=== PATIENT | female | born 1980 | race Caucasian/White ===

== ENCOUNTER → 2017-02-24 | Outpatient (CLI) | payer BC | LOC: FIMAGING 10:31 | PROVIDERS: ATTEND Advanced Practice Midwife | DX: O09.522 Supervision of elderly multigravida, second trimester (principal); Z3A.18 18 weeks gestation of pregnancy ==

== ENCOUNTER 2017-06-14 22:22 | Inpatient (IN) | payer BC ==
[2017-06-14] MEDS ORDERED: EPSOM SALT 454 GM TP PRN (22:52)
[2017-06-14] MEDS ORDERED: LR 1,000 ML IV PRN (22:52)
[2017-06-14] MEDS ORDERED: OLIVE OIL 118 ML BTL MISC PRN (22:52)
[2017-06-14] MEDS ORDERED: TERBUTALINE SULFATE 1 MG/ML VIAL IV PRN (22:52)
[2017-06-14] MEDS ORDERED: OXYTOCIN 20 UNIT in LR 1,000 ML IV PRN (22:52)
[2017-06-14 23:07] LABS: PLATELET COUNT 253 10^3/uL (150-400)
[2017-06-14] MEDS: AMPICILLIN SODIUM 1 GM in NS 50 ML IV SCH ×2 (23:17→23:30)
[2017-06-14] MEDS ORDERED: BUPIVACAINE 0.25% 30 ML SDV ONE (23:33)
[2017-06-14] MEDS ORDERED: fentaNYL 2MCG/ML/BUP 0.1% RTU 100 ML BAG EP ONE (23:34)
[2017-06-14] MEDS ORDERED: AMPICILLIN SODIUM 1 GM in NS 50 ML IV SCH (23:55)
[2017-06-14] MEDS ORDERED: MISOPROSTOL 200 MCG TAB ONE (23:56)
[2017-06-14] MEDS ORDERED: LIDOCAINE 1% 300 MG/30 ML SDV ONE (23:56)
[2017-06-14] MEDS ORDERED: OXYTOCIN 10 UNIT/ML VIAL ONE (23:56)
[2017-06-14] MEDS ORDERED: OLIVE OIL 118 ML BTL ONE (23:56)
[2017-06-14] MEDS ORDERED: AMMONIA AROMATIC 1 EACH AMP IH ONE (23:56)
--- NOTE | 2017-06-14 23:57 | PREANESOB ---
Obstetric Pre-Anesthesia Info - General Info Proposed Procedure: labor epidural - Info Status: Premature (34 wks) - Labor Status Cervical Dilation per last OB SVE: 6 Labor Epidural: Yes Anesthesia Allergies/Adverse Reactions: Allergy/AdvReac Type Severity Reaction Status Date / Time Sulfa (Sulfonamide Allergy Verified 06/14/17 23:06 Antibiotics) [Sulfa(Sulfonamide Antibiotics)] Home Medications: Medication Instructions Recorded Ondansetron Odt [Zofran Odt] 4 - 8 mg PO Q6 PRN #6 tab 01/15/12 oxyCODONE/APAP 5/325 [Percocet 1 - 2 tab PO Q4-6PRN PRN #20 tab 01/15/12 5/325 (*)] Cimetidine [Acid Management Sme] 02/17/12 Ondansetron Odt [Zofran Odt] 4 - 8 mg PO Q4PRN PRN #4 tab 02/18/12 Pantoprazole Sodium [Protonix 40mg 40 mg PO DAILY #30 tab 02/18/12 (RX)] Visit Medications: Generic Name Dose Route Start Last Admin Trade Name Freq PRN Reason Stop Dose Admin Ampicillin Sodium 1 gm/ Sodium 50 mls @ 100 mls/hr 06/14/17 23:00 06/14/17 23 :17 Chloride IV 06/14/17 23:59 50 mls Q30M FABIANO Administration Protocol Ampicillin Sodium 1 gm/ Sodium 50 mls @ 100 mls/hr 06/14/17 23:55 Chloride IV 07/14/17 23:54 Q4H FABIANO Protocol Lactated Ringer's 1,000 mls @ 0 mls/hr 06/14/17 22:52 06/14/17 22:55 Lr IV 06/15/17 22:51 1,000 mls PRN PRN Administration SEE PROTOCOL CONDITIONS Protocol Per Protocol Oxytocin 20 unit/ Lactated 1,002 mls @ 150 mls/hr 06/14/17 22:52 Ringer's IV PRN PRN Post- bleeding Ibuprofen 600 mg 06/14/17 22:52 Motrin PO 12/11/17 22:51 Q6HRS PRN post , inflammation Magnesium Sulfate 454 gm 06/14/17 22:52 Epsom Salt TP 12/11/17 22:51 Q1H PRN perineal discomfort [place] Oil 118 ml 06/14/17 22:52 Sweet Oil MISC 12/11/17 22:51 ONCE PRN perineal massage Terbutaline Sulfate 0.25 mg 06/14/17 22:52 Brethine IV 12/11/17 22:51 ONCE PRN Tachysystole Labs: 06/14/17 22:55
--- NOTE | 2017-06-15 00:09 | PREANESOB ---
Obstetric Pre-Anesthesia Info - Info Status: Premature (34w) - Labor Status Cervical Dilation per last OB SVE: 6 Labor Epidural: Yes Anesthesia Allergies/Adverse Reactions: Allergy/AdvReac Type Severity Reaction Status Date / Time Sulfa (Sulfonamide Allergy Verified 06/14/17 23:06 Antibiotics) [Sulfa(Sulfonamide Antibiotics)] Home Medications: Medication Instructions Recorded Ondansetron Odt [Zofran Odt] 4 - 8 mg PO Q6 PRN #6 tab 01/15/12 oxyCODONE/APAP 5/325 [Percocet 1 - 2 tab PO Q4-6PRN PRN #20 tab 01/15/12 5/325 (*)] Cimetidine [Acid Architect Internship] 02/17/12 Ondansetron Odt [Zofran Odt] 4 - 8 mg PO Q4PRN PRN #4 tab 02/18/12 Pantoprazole Sodium [Protonix 40mg 40 mg PO DAILY #30 tab 02/18/12 (RX)] Visit Medications: Generic Name Dose Route Start Last Admin Trade Name Freq PRN Reason Stop Dose Admin Ampicillin Sodium 1 gm/ Sodium 50 mls @ 100 mls/hr 06/14/17 23:55 Chloride IV 07/14/17 23:54 Q4H FABIANO Protocol Lactated Ringer's 1,000 mls @ 0 mls/hr 06/14/17 22:52 06/14/17 22:55 Lr IV 06/15/17 22:51 1,000 mls PRN PRN Administration SEE PROTOCOL CONDITIONS Protocol Per Protocol Oxytocin 20 unit/ Lactated 1,002 mls @ 150 mls/hr 06/14/17 22:52 Ringer's IV PRN PRN Post- bleeding Ibuprofen 600 mg 06/14/17 22:52 Motrin PO 12/11/17 22:51 Q6HRS PRN post , inflammation Magnesium Sulfate 454 gm 06/14/17 22:52 Epsom Salt TP 12/11/17 22:51 Q1H PRN perineal discomfort [place] Oil 118 ml 06/14/17 22:52 Sweet Oil MISC 12/11/17 22:51 ONCE PRN perineal massage Terbutaline Sulfate 0.25 mg 06/14/17 22:52 Brethine IV 12/11/17 22:51 ONCE PRN Tachysystole Discontinued Medications Generic Name Dose Route Start Last Admin Trade Name Cecil PRN Reason Stop Dose Admin Ammonia (Aromatic Spirit) Confirm 06/14/17 23:56 Ammonia Aromatic Administered 06/14/17 23:57 Dose 1 each IH .STK-MED ONE Bupivacaine HCl Confirm 06/14/17 23:33 Sensorcaine 0.25% Sdv Administered 06/14/17 23:34 Dose 30 ml .ROUTE .STK-MED ONE Fentanyl/Bupivacaine HCl Confirm 06/14/17 23:34 Fentanyl/Bupivacaine/Ns 2 Mcg/Ml 0.1% (Premix Administered 06/14/17 23:35 Dose 100 ml EP .STK-MED ONE Ampicillin Sodium 1 gm/ Sodium 50 mls @ 100 mls/hr 06/14/17 23:00 06/14/17 23 :17 Chloride IV 06/14/17 23:59 50 mls Q30M FABIANO Administration Protocol Lidocaine HCl Confirm 06/14/17 23:56 Lidocaine Hcl 1% Administered 06/14/17 23:57 Dose 300 mg .ROUTE .STK-MED ONE Misoprostol Confirm 06/14/17 23:56 Cytotec Administered 06/14/17 23:57 Dose 800 mcg .ROUTE .STK-MED ONE [place] Oil Confirm 06/14/17 23:56 Sweet Oil Administered 06/14/17 23:57 Dose 118 ml .ROUTE .STK-MED ONE Oxytocin Confirm 06/14/17 23:56 Pitocin Administered 06/14/17 23:57 Dose 40 unit .ROUTE .STK-MED ONE Labs: 06/14/17 22:55 Patient ABO/Rh B NEGATIVE 06/14/17 22:55
--- NOTE | 2017-06-15 00:10 | POSTANESTH ---
Post Anesthetic Evaluation Cardiovascular Status: Normal, Stable Respiratory Status: Normal, Stable Level of Consciousness/Mental Status: Can Participate in Eval Pain Control: Adequate, Prn Tx Ordered Nausea/Vomiting Control: Adequate, Prn Tx Ordered Complications Possibly Related to Anesthesia: None Noted
[2017-06-15] MEDS ORDERED: LR 500 ML IV SCH (00:30)
[2017-06-15] MEDS: IBUPROFEN 600 MG TAB PO PRN ×4 (00:35→22:13)
[2017-06-15] MEDS ORDERED: HYDROCODONE/APAP 5/325 TAB PO PRN (00:40)
[2017-06-15] MEDS ORDERED: HYDROCORTISONE 0.5% CREAM TP PRN (00:40)
[2017-06-15] MEDS ORDERED: ACETAMINOPHEN 325 MG TAB PO PRN (00:40)
[2017-06-15] MEDS ORDERED: SIMETHICONE 80 MG TAB CHEW PO PRN (00:40)
--- NOTE | 2017-06-15 00:54 | OBPROG ---
Labor Progress Note Assessment/Plan: Assessment: at 34 2/7 weeks active labor gbs unknown suspected chorio desires epidural Plan: 06/15/17 00:42 Subjective/Intrapartum Course: 06/15/17 00:54 patient was sitting up for epidural and began having significant rectal pressure. SROM and likely complete at 2351. patient rapidly delivered without needing to push. Objective: 06/14/17 22:55 Patient ABO/Rh B NEGATIVE 06/14/17 22:55 - SVE Dilation (cm): 10 Effacement (%): 100 Membranes: SROM Amniotic Fluid Color: Clear Dilation Complete Date: 06/14/17 Dilation Complete Time: 23:51 - Contraction Pattern Assessment Current Contraction Pattern: Regular - FHR Assessment Mohr FHR Pattern Variability: Minimal - AP Antepartum Course: 06/15/17 00:58 initial care with [facility] at 11 weeks. had placenta previa with first trimester ultrasound which resolved. normal level 2 ultrasound and genetic testing. began having low back pain and discomfort this evening. arrived to labor and delivery and was found to be 6 cm dilated. temp 38.2 ICD10 Worksheet Patient Problems: Problems Problem Status Onset labor Acute - ICD10 Problem Qualifiers (1) labor
--- NOTE | 2017-06-15 01:16 | OBDEL ---
Info Type: Vaginal Presentation at Delivery: Vertex L&D Analgesia/Anesthesia Type: Epidural (placed right before delivery. did not provide relief.) GBS+: No (unknown) Antibiotic Used for + GBS: Ampicillin Intrapartum Medications: Generic Name Dose Route Start Last Admin Trade Name Freq PRN Reason Stop Dose Admin Lactated Ringer's 1,000 mls @ 0 mls/hr 06/14/17 22:52 06/14/17 22:55 Lr IV 06/15/17 22:51 1,000 mls PRN PRN Administration SEE PROTOCOL CONDITIONS Protocol Per Protocol Ibuprofen 600 mg 06/14/17 22:52 06/15/17 00:35 Motrin PO 12/11/17 22:51 600 mg Q6HRS PRN Administration post , inflammation Discontinued Medications Generic Name Dose Route Start Last Admin Trade Name Freq PRN Reason Stop Dose Admin Ampicillin Sodium 1 gm/ Sodium 50 mls @ 100 mls/hr 06/14/17 23:00 06/14/17 23 :17 Chloride IV 06/14/17 23:59 50 mls Q30M FABIANO Administration Protocol Oxytocin 20 unit/ Lactated 1,002 mls @ 150 mls/hr 06/14/17 22:52 06/15/17 00: 03 Ringer's IV 1,002 mls PRN PRN Administration Post- bleeding - Infant Care 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 SROM and likely complete at 2351. patient rapidly delivered without needing to push. Indications for Delivery: Spontaneous Labor Vaginal Delivery - Delivery Provider Delivery Physician/CNM: Ángela Hsu - Labor and Delivery Onset of Contractions Date: 06/14/17 Onset of Contractions Time: 22:30 Onset of Contractions Type: Spontaneous Rupture of Membranes Date: 06/14/17 Rupture of Membranes Time: 23:51 Rupture of Membranes Type: Spontaneous Amniotic Fluid Color: Clear Dilation Complete Date: 06/14/17 Dilation Complete Time: 23:51 Placenta Delivery Date: 06/14/17 Placenta Delivery Time: 23:56 Total Hours of Labor: 1 Laceration: 1st Degree Vaginal Sponge Count Correct: Yes Vaginal Needle Count Correct: Yes Vaginal Sweep Performed: No EBL: 400 Delivery Comment: moderate amount of blood after delivery. bedside ultrasound done - appeared to have a thin stripe Cord Gases: Cord Gases Cord Blood PCO2 43.7 mmHg (37-60) 06/15/17 00:05 Cord Base Excess -9.4 mEq/L (-13.6--3.2) 06/15/17 00:05 Cord ABG pH 7.23 (7.10-7.37) 06/15/17 00:05 Cord VBG pH 7.30 (7.20-7.42) 06/15/17 00:05 Operative Report - Delivery Cord Gases: Cord Gases Cord Blood PCO2 43.7 mmHg (37-60) 06/15/17 00:05 Cord Base Excess -9.4 mEq/L (-13.6--3.2) 06/15/17 00:05 Cord ABG pH 7.23 (7.10-7.37) 06/15/17 00:05 Cord VBG pH 7.30 (7.20-7.42) 06/15/17 00:05 [place] Data NICOLE: 07/24/17 Gestational Age: 34 week(s) and 3 day(s) Moh[place] Delivery Date: 06/14/17 Delivery Time: 23:56 Sex of : Female ICD10 Worksheet Patient Problems: Problems Problem Status Onset labor Acute - ICD10 Problem Qualifiers (1) labor
--- NOTE | 2017-06-15 04:10 | GHP ---
[f rep st] PREOP HISTORY AND PHYSICAL DATE OF ADMISSION: 06/14/2017 ADMISSION DIAGNOSES: 1. Intrauterine at 34-/27 weeks' gestation. 2. Active labor. 3. Suspected chorioamnionitis. INDICATIONS: Patient is a 37-year-old, 3, para 1, who is 34-2/7 weeks' gestation. Her estimated date of confinement is 07/24/2017, dated by last menstrual period of 10/20/2016, and consistent with a first-trimester ultrasound. The patient began receiving care at [facility] at 11 weeks' gestation. The patient had her first baby with [facility]. The patient's overall has been uncomplicated. She had an ultrasound in the first trimester, which showed placenta previa, which resolved by her anatomy ultrasound. Otherwise, remainder of the was uncomplicated. The patient called this evening complaining of constant low back pain. She had well hydrated. She also states she had decreased movement. She was advised to hydrate and monitor her back pain. She states it was constant and not coming and going, but because it persisted, she came into Labor and Delivery and was evaluated and found to be 6 cm dilated. By the time of arrival, patient had been having back pain which was intermittent and coming and going, and was noted to have a temperature of 38.2 degrees Celsius. The patient has been admitted, and will be managed expectantly for delivery. MEDICAL HISTORY: Significant for history of interstitial cystitis and migraines. MEDICATIONS: vitamins and DHEA. SURGICAL HISTORY: Voluntary termination of , appendectomy, wisdom tooth extraction. ALLERGIES: Sulfa. SOCIAL HISTORY: She is . She lives with her and their other child. She denies tobacco, alcohol, or drug use. FAMILY MEDICAL HISTORY: Noncontributory. FIELD IRONWORKER HISTORY: Menarche age 13. Periods every 27 days, lasting 5 days. She is a 3, para 1-0-1-1. In 2001, she had a voluntary termination of . In 08/2012, she had a spontaneous vaginal delivery with [facility] at 38-5/7 weeks' gestation of a 7-pound 14-ounce male . That was uncomplicated. Current has been uncomplicated. Patient does have a history of HPV and has had 2 colposcopies, which have both been negative and no treatment was needed. Repeat Pap smears have been negative. She tested positive for HPV in the past, but denies any history of any other sexually transmitted diseases. REVIEW OF SYSTEMS: 10-point Review of Systems is negative with exception of the above-mentioned pertinent positives. She is now having contractions. She denies any vaginal bleeding or loss of fluid. She denies any headache or changes in vision. She is febrile, though. PHYSICAL EXAM: VITAL SIGNS: Stable, with the exception of the fever. GENERAL APPEARANCE: She is alert and oriented x3, however, appears very uncomfortable. PSYCH: She has appropriate affect. NECK: Mobile and supple. HEART: Rate is regularly regular. LUNGS: Clear to auscultation bilaterally. ABDOMEN: Gravid, nondistended, nontender. EXTREMITIES: Reveal no calf tenderness or edema. MUSCULOSKELETAL: Grossly intact. NEURO: Normal. SKIN: Grossly intact. PELVIC: She is 6 cm dilated, 80% effaced, with a bulging bag of water. Vertex was confirmed by ultrasound. She is having contractions every 2 to 3 minutes. status has been tachycardic on admission, but is overall reassuring and is no longer tachycardic. LABS: Blood type B negative. Antibody screen negative. Rubella immune. GBS is unknown. HBsAg negative. HIV negative. Her 50 g glucose was 91. She had a negative alpha-fetoprotein, and negative testing. ASSESSMENT AND PLAN: A 37-year-old, 3, para 1-0-1-1, who is 34-2/7 weeks' gestation, and presented in active labor with possible chorioamnionitis, as she has a temperature of 38.2. Patient is requesting an epidural. She has been using nitrous oxide. She will receive the epidural. She has been given 2 g of ampicillin, and will be managed expectantly. /[id number]/MODL MTDD
[2017-06-15 05:27] VITALS: RESP 16
--- NOTE | 2017-06-15 12:27 | OBPP ---
Progress Note Assessment/Plan: Assessment: 37 y/o PPD #1 s/p precipitous @ 34 weeks with suspected chorioamnionitis. Plan: Pt has been afebrile since delivery but her UA demonstrated UTI and her WBC was 24 on admission. I will start PO Keflex now and send the urine for culture. support for pumping now and routine PPC. 06/15/17 12:28 Subjective/ Course: 06/15/17 12:18 Pt is doing better this am. She has some cramping and perineal pain controlled with Ibuprofen. She is concerned about the reason why she went into labor and delivered so quickly @ 34 weeks. She has urinary symptoms in the prior few days and does have a history of interstitial cystitis. Currently she denies significant dysuria etc. She is pumping and starting to get collustum. Objective: 06/14/17 22:55 Patient ABO/Rh B NEGATIVE 06/15/17 00:41 Temp Pulse Resp BP Pulse Ox 36.6 C 72 16 103/52 L 78 L 06/15/17 07:58 06/15/17 06:31 06/15/17 07:58 06/15/17 07:58 06/15/17 07:58 Uterine Position/Fundal Height: Umbilicus -2 Uterine Tone: Firm Physical Exam - Physical Exam Neck: non-tender, full range of motion, supple Respiratory: chest non-tender, lungs clear, normal breath sounds Cardiac/Chest: regular rate, rhythm Abdomen: normal bowel sounds Extremities: swelling (no), Zen's sign (neg)
[2017-06-15] MEDS ORDERED: CEPHALEXIN 500 MG CAP PO ONE (14:36)
[2017-06-15] MEDS: CEPHALEXIN 500 MG CAP PO SCH ×2 (14:38→19:11)
[2017-06-16] MEDS ORDERED: CEPHALEXIN 500 MG CAP PO SCH
[2017-06-16] MEDS: CEPHALEXIN 500 MG CAP PO SCH ×5 (00:13→23:01)
[2017-06-16] MEDS: IBUPROFEN 600 MG TAB PO PRN ×4 (05:22→23:00)
--- NOTE | 2017-06-16 07:26 | OBPP ---
Progress Note Assessment/Plan: Assessment: nipples intact no breakdown pumping and pain well managed ff@u scant rubra lochia voiding without difficulty pericare routinely denies questions Plan:pp day 2 06/16/17 07:24 Subjective/ Course: 06/15/17 12:18 Pt is doing better this am. She has some cramping and perineal pain controlled with Ibuprofen. She is concerned about the reason why she went into labor and delivered so quickly @ 34 weeks. She has urinary symptoms in the prior few days and does have a history of interstitial cystitis. Currently she denies significant dysuria etc. She is pumping and starting to get collustum. 06/16/17 07:22 Doing well today denies pain. Denies pain with pumping and . Antibiotics started for suspected uti will check on culture. placed on keflex Objective: 06/14/17 22:55 Patient ABO/Rh B NEGATIVE 06/15/17 00:41 Temp Pulse Resp BP Pulse Ox 36.5 C 69 16 90/51 L 97 06/15/17 20:00 06/15/17 20:00 06/15/17 20:00 06/15/17 20:00 06/15/17 20:00 Uterine Position/Fundal Height: At Umbilicus Uterine Tone: Firm Physical Exam - Physical Exam General Appearance: WD/WN, alert, no apparent distress Abdomen: other (ff@u/ scant rubra lochia perineum approximated) Extremities: normal range of motion, Zen's sign (negative bilaterally) DTR- Lower Extremities: Knee (R): 1+, Knee (L): 1+ (no clonus) Skin: normal color, warm/dry Neuro/Psych: no motor/sensory deficits, alert, normal mood/affect, oriented x 3
[2017-06-16 12:03] VITALS: O2SAT 98
[2017-06-16] MEDS: DOCUSATE SODIUM 100 MG CAP PO PRN ×2 (12:22→23:00)
--- NOTE | 2017-06-16 18:47 | OBGCSDC ---
General Delivery Information - General Info : 2 Para: 1 Abortions: 0 Type: Vaginal L&D Analgesia/Anesthesia Type: Epidural Admission Date: 06/14/17 Labs: Patient ABO/Rh B NEGATIVE 06/15/17 00:41 Hct 38.1 % (38.0-47.0) 06/14/17 22:55 - Hospital Course Antepartum: 06/15/17 00:58 initial care with [facility] at 11 weeks. had placenta previa with first trimester ultrasound which resolved. normal level 2 ultrasound and genetic testing. began having low back pain and discomfort this evening. arrived to labor and delivery and was found to be 6 cm dilated. temp 38.2 Intrapartum: 06/15/17 00:54 patient was sitting up for epidural and began having significant rectal pressure. SROM and likely complete at 2351. patient rapidly delivered without needing to push. : 06/15/17 12:18 Pt is doing better this am. She has some cramping and perineal pain controlled with Ibuprofen. She is concerned about the reason why she went into labor and delivered so quickly @ 34 weeks. She has urinary symptoms in the prior few days and does have a history of interstitial cystitis. Currently she denies significant dysuria etc. She is pumping and starting to get collustum. 06/16/17 07:22 Doing well today denies pain. Denies pain with pumping and . Antibiotics started for suspected uti will check on culture. placed on keflex Vaginal - Delivery Provider Delivery Physician/CNM: Ángela Hsu - Diagnosis Labor: Spontaneous Rupture of Membranes Type: Spontaneous Amniotic Fluid Color: Clear Laceration: 1st Degree - Delivery EBL: 400 Data NICOLE: 07/24/17 Gestational Age: 34 week(s) and 4 day(s) [place] Delivery Date: 06/15/17 Delivery Time: 23:56 Sex of : Female Score (1 Min): 2 Score (5 Min): 6 Score (10 Min): 7 Discharge Information - Discharge Information Prescriptions: Ibuprofen [Motrin (*)] 600 mg PO Q6HRS PRN #30 tab PRN Reason: post , inflammation Cephalexin [Keflex (*)] 500 mg PO TID #21 cap Condition: Good
[2017-06-16] MEDS ORDERED: TDAP ADULT 0.5 ML INJ (BOOSTRIX) IM ONE (18:57)
[2017-06-16 20:29] VITALS: BP 107/60; PULSE 82; TEMP 97.6
== END 2017-06-16 23:07 | disposition home or self-care (01) | DRG 775 ==
LOC: FLD 22:22 → OBSVTOIN 22:52 → FOB 06-15 03:45
PROVIDERS: ADMIT Advanced Practice Midwife; ATTEND Obstetrics & Gynecology
PROC: 10E0XZZ Delivery of Products of Conception, External Approach (ICD-10-PCS; principal; 2017-06-15)
DX: O60.14X0 Preterm labor third trimester with preterm delivery third trimester, not applicable or unspecified (principal); O41.1230 Chorioamnionitis, third trimester, not applicable or unspecified; O08.83 Urinary tract infection following an ectopic and molar pregnancy; O26.893 Other specified pregnancy related conditions, third trimester; O70.0 First degree perineal laceration during delivery; Z3A.34 34 weeks gestation of pregnancy; Z37.0 Single live birth; M54.9 Dorsalgia, unspecified
CPT/HCPCS: J0290

== ENCOUNTER → 2017-07-08 | Outpatient (CLI) | payer BC | LOC: FLACT 12:58 | PROVIDERS: ATTEND Obstetrics & Gynecology | DX: O92.79 Other disorders of lactation (principal) | CPT/HCPCS: G0463 ==

== ENCOUNTER → 2017-07-22 | Outpatient (CLI) | payer BC | LOC: FLACT 12:52 | PROVIDERS: ATTEND Obstetrics & Gynecology | DX: Z39.1 Encounter for care and examination of lactating mother (principal) | CPT/HCPCS: G0463 ==

== ENCOUNTER → 2017-08-29 | Outpatient (CLI) | payer BC | LOC: FLACT 09:13 | PROVIDERS: ATTEND Obstetrics & Gynecology | DX: Z39.1 Encounter for care and examination of lactating mother (principal) | CPT/HCPCS: G0463 ==